=== PATIENT | female | born 1995 | race African-American/Black ===

== ENCOUNTER 2018-01-05 03:11 | Inpatient (IN) | payer MEDICAID, OTHER ==
[2018-01-05] VITALS (10 sets, daily range): BP systolic 119–133; BP diastolic 64–84; PULSE 79–95; RESP 14–23; TEMP 98.8–99.3; O2SAT 100
[~2018-01-05] VITALS: Ht 154.9 cm; Wt 67.9 kg
[2018-01-05] MEDS ORDERED: KETOROLAC TROMETHAMINE 60 MG/2 ML (IM) VIAL IM ONE (04:17)
[2018-01-05] MEDS ORDERED: MAGNESIUM HYDROXIDE SUSP 30 ML CUP PO PRN (08:15)
[2018-01-05] MEDS ORDERED: MISCELLANEOUS NURSING INFORMATION XX SCH (08:15)
[2018-01-05] MEDS ORDERED: METOCLOPRAMIDE HCL 10 MG/2 ML VIAL IV PUSH PRN (08:15)
[2018-01-05] MEDS ORDERED: RESP: ALBUTEROL 2.5 MG/IPRATROPIUM 0.5 MG NEB (PRN) INH (08:15)
[2018-01-05] MEDS ORDERED: CHLORHEXIDINE GLUCONATE 2 % 1 PACK (2 CLOTHS) TOP PRN (08:15)
[2018-01-05] MEDS ORDERED: SODIUM CHLORIDE 0.9% FLUSH 10 ML FLUSH IV FLUSH PRN (08:15)
[2018-01-05] MEDS ORDERED: ACETAMINOPHEN 325 MG TAB PO PRN (08:15)
--- NOTE | 2018-01-05 08:41 | HHI.HP ---
HPI Service Critical Care Medicine Primary Care Physician No Primary Care Physician Admission Diagnosis Diagnosis: Chief Complaint: Nausea, vomiting, abdominal pain Travel History International Travel<30 Days: No Contact w/Intl Traveler <30 Da: No Traveled to Known Affected Are: No Sepsis Criteria SIRS Criteria (2 or more): Temp > 100.9 or < 96.8, Heart rate over 90 Sepsis Criteria (SIRS+source): Infect source susp/known History of Present Illness 22-year-old female with no major medical problems with a history of 1 month ago presented to the ER at [facility] now with nausea vomiting and abdominal pain going on for 2 days and not feeling well. Patient is to be young daughters aged 2 and 4 were sick with respiratory symptoms and fevers over the last 1 week. Patient also noted having some diarrhea couple of times over the last 2 days. She denies any melena or rectal bleeding. Denies any chest pain or dizziness or palpitations or lightheadedness. Denies any dysuria or hematuria or urinary frequency. She did follow-up with her OB physician in November following her and had shay removed then and seemed to be doing well following the of her baby. Patient was reportedly febrile and tachycardic in the ER at [facility]. She underwent labs including a CBC and CMP which were unremarkable with a normal lipase as well as CT abdomen pelvis showed fluid-filled bowel loops however no acute pathology. CTA chest was negative for PE and showed a pulmonary nodule however no infiltrates or effusions. Patient received 5 L of IV fluids prior to transport to [facility] ICU. I evaluated the patient immediately following her arrival. She appeared comfortable in bed in no acute distress. Denied any nausea vomiting currently. She was feeling hungry and wanted to eat. History was obtained by discussion with patient as well as reviewing records. Patient was reportedly on room air and has not required any oxygen since her arrival to the ER yesterday. There was some transient hypotension in the ER adult on a however this appears to have resolved with fluids. Her lactic acid at [facility] was normal. Review of Systems Constitutional: COMPLAINS OF: Fever, Chills, DENIES: Diaphoretic episodes, Fatigue, Weight gain, Weight loss, Dizziness, Change in appetite, Night Sweats Endocrine: DENIES: Abnorml menstrual pattern, Heat/cold intolerance, Polydipsia , Polyuria, Polyphagia Eyes: DENIES: Blurred vision, Diplopia, Eye inflammation, Eye pain, Vision loss , Photosensitivity, Double Vision Ears, nose, mouth, throat: DENIES: Tinnitus, Hearing loss, Vertigo, Nasal discharge, Oral lesions, Throat pain, Hoarseness, Ear Pain, Running Nose, Epistaxis, Sinus Pain, Toothache, Odynophagia Respiratory: DENIES: Apneas, Cough, Snoring, Wheezing, Hemoptysis, Sputum production, Shortness of breath Cardiovascular: DENIES: Chest pain, Palpitations, Syncope, Dyspnea on Exertion , PND, Lower Extremity Edema, Orthopnea, Claudication Gastrointestinal: COMPLAINS OF: Abdominal pain, Diarrhea, Nausea, Vomiting, DENIES: Black stools, Bloody stools, Constipation, Difficulty Swallowing, Anorexia Genitourinary: DENIES: Abnormal vaginal bleeding, Dysmenorrhea, Dyspareunia, Sexual dysfunction, Urinary frequency, Urinary incontinence, Urgency, Hematuria , Dysuria, Nocturia, Vaginal discharge Musculoskeletal: DENIES: Joint pain, Muscle aches, Stiffness, Joint Swelling, Back pain, Neck pain Integumentary: DENIES: Abnormal pigmentation, Pruritus, Rash, Nail changes, Breast masses, Breast skin changes, Nipple discharge Hematologic/lymphatic: DENIES: Bruising, Lymphadenopathy Immunologic/allergic: DENIES: Eczema, Urticaria Neurologic: DENIES: Abnormal gait, Headache, Localized weakness, Paresthesias, Seizures, Speech Problems, Tremor, Poor Balance Psychiatric: DENIES: Anxiety, Confusion, Mood changes, Depression, Hallucinations, Agitation, Suicidal Ideation, Homicidal Ideation, Delusions Past Family Social History Allergies: Coded Allergies: No Known Allergies (Verified Allergy, Severe, 09/23/07) Past Medical History No major medical problems before. Past Surgical History 1 month ago. Reported Medications Patient denies taking any medications at home. Active Ordered Medications Received Zosyn and vancomycin IV in the ER at [facility] Family History Mother with history of diabetes mellitus. Social History Denies any history of substance abuse. Physical Exam Physical Exam Heart rate 90, blood pressure 130s by the 70s O2 sat 99% on room air Laboratory Reviewed from [facility] ER: CBC, CMP, lipase within normal limits. D-dimer 0.64, lactic acid normal, Beta-HCG negative Imaging CTA chest: Negative for PE. Pulmonary nodule. No infiltrates or effusions per radiology report from [facility] ER CT abdomen pelvis: Fluid-filled bowel loops, no acute pathology per radiology report from [facility] ER Septic Shock Reassessment Septic shock perfusion: reassessment completed Caprini VTE Risk Assessment Caprini VTE Risk Assessment: No/Low Risk (score <= 1) Caprini Risk Assessment Model Point Value = 1 Point Value = 2 Point Value = 3 Point Value = 5 Age 41-60 Minor surgery BMI > 25 kg/m2 Swollen legs Varicose veins or History of unexplained or recurrent spontaneous Oral contraceptives or hormone replacement Sepsis (< 1 month) Serious lung disease, including pneumonia (< 1 month) Abnormal pulmonary function Acute myocardial infarction Congestive heart failure (< 1 month) History of inflammatory bowel disease Medical patient at bed rest Age 61-74 Arthroscopic surgery Major open surgery (> 45 min) Laparoscopic surgery (> 45 min) Malignancy Confined to bed (> 72 hours) Immobilizing plaster cast Central venous access Age >= 75 History of VTE Family history of VTE Factor V Leiden Prothrombin [id number] Lupus anticoagulant Anticardiolipin antibodies Elevated serum homocysteine Heparin-induced thrombocytopenia Other congenital or acquired thrombophilia Stroke (< 1 month) Elective arthroplasty Hip, pelvis, or leg fracture Acute spinal cord injury (< 1 month) Prophylaxis Regimen Total Risk Factor Score Risk Level Prophylaxis Regimen 0-1 Low Early ambulation 2 Moderate Order ONE of the following: *Sequential Compression Device (SCD) *Heparin 5000 units SQ BID 3-4 Higher Order ONE of the following medications: *Heparin 5000 units SQ TID *Enoxaparin/Lovenox 40 mg SQ daily (WT < 150 kg, CrCl > 30 mL/min) *Enoxaparin/Lovenox 30 mg SQ daily (WT < 150 kg, CrCl > 10-29 mL/min) *Enoxaparin/Lovenox 30 mg SQ BID (WT < 150 kg, CrCl > 30 mL/min) AND/OR *Sequential Compression Device (SCD) 5 or more Highest Order ONE of the following medications: *Heparin 5000 units SQ TID (Preferred with Epidurals) *Enoxaparin/Lovenox 40 mg SQ daily (WT < 150 kg, CrCl > 30 mL/min) *Enoxaparin/Lovenox 30 mg SQ daily (WT < 150 kg, CrCl > 10-29 mL/min) *Enoxaparin/Lovenox 30 mg SQ BID (WT < 150 kg, CrCl > 30 mL/min) AND *Sequential Compression Device (SCD) Assessment and Plan Assessment and Plan 22-year-old female with: Nausea vomiting abdominal pain Fever Possible sepsis secondary to suspected viral illness, probable gastroenteritis. Plan: Patient accepted for admission to ICU. Received 5 L IV fluids prior to arrival and appears to be well resuscitated. Continue maintenance IV fluids Received IV antibiotics in the ER including Zosyn and vancomycin. Suspect possible viral illness with possible gastroenteritis as 2 of her children also had similar symptoms last week. We will initiate Levaquin 500 mg IV now and switch to by mouth tomorrow. Tolerating oral intake. Patient denies breast-feeding currently. Check nasal washings for influenza A and B. Advance by mouth diet as tolerated Follow intake output, monitor and replete electrolytes, follow BUN/creatinine SCDs for DVT prophylaxis. We'll ambulate as tolerated. Will reevaluate later today to transfer out of ICU. Patient will be transferred to hospitalist service for further medical management. Triston Stephen MD Jan 05, 2018 08:41
[2018-01-05] MEDS: LEVOFLOXACIN 500 MG PREMIX INJ 100 ML IV SCH (10:22)
[2018-01-05] MEDS: D5-1/2 NS + KCL 20 MEQ INJ 1,000 ML IV SCH ×2 (10:22→17:35)
[2018-01-05] MEDS: SODIUM CHLORIDE 0.9% FLUSH 10 ML FLUSH IV FLUSH SCH ×2 (10:23→21:00)
[2018-01-05] MEDS: PANTOPRAZOLE SOD 40 MG DELAYED RELEASE TAB PO SCH (10:24)
[2018-01-05] MEDS: ONDANSETRON HCL 4 MG/2 ML VIAL IV PUSH PRN ×2 (11:47→22:58)
[2018-01-06] VITALS: BP 124/67; PULSE 90; RESP 18; TEMP 98.7; O2SAT 100
[2018-01-06] MEDS: D5-1/2 NS + KCL 20 MEQ INJ 1,000 ML IV SCH ×2 (00:08→02:37)
[2018-01-06 04:00] VITALS: BP 119/71; PULSE 80; RESP 16; TEMP 98.5; O2SAT 100
[2018-01-06] MEDS ORDERED: CHLORHEXIDINE GLUCONATE 2 % 1 PACK (2 CLOTHS) TOP SCH (04:00)
[2018-01-06 05:24] LABS: AUTOMATED NEUTROPHIL # 2.7 TH/MM3 (1.8-7.7); BASOPHIL % 0.5 % (0.0-2.0); EOSINOPHIL % 0.8 % (0.0-4.0); HEMATOCRIT 24.6 % (35.0-46.0); HEMOGLOBIN 7.9 GM/DL (11.6-15.3); LYMPH % 31.3 % (9.0-44.0); LYMPHOCYTE # 1.6 TH/MM3 (1.0-4.8); MEAN CELL VOLUME 77.4 FL (80.0-100.0); MEAN CORPUSCULAR HEMOGLOBIN 24.8 PG (27.0-34.0); MEAN CORPUSCULAR HGB CONC 32.1 % (32.0-36.0); MEAN PLATELET VOLUME 7.7 FL (7.0-11.0); MONO % 14.4 % (0.0-8.0); MONOCYTE # 0.7 TH/MM3 (0-0.9); PLATELET COUNT 211 TH/MM3 (150-450); RED BLOOD COUNT 3.18 MIL/MM3 (4.00-5.30); RED CELL DISTRIBUTION WIDTH 20.4 % (11.6-17.2); WHITE BLOOD COUNT 5.1 TH/MM3 (4.0-11.0)
[2018-01-06 05:45] LABS: ALBUMIN 2.8 GM/DL (3.4-5.0); AST (GOT) 16 U/L (15-37); BICARBONATE 26.4 MEQ/L (21.0-32.0); BLOOD UREA NITROGEN 3 MG/DL (7-18); CALCIUM 8.3 MG/DL (8.5-10.1); CHLORIDE 109 MEQ/L (98-107); CREATININE 0.67 MG/DL (0.50-1.00); GLOMERULAR FILTRATION RATE 134 ML/MIN (>89); GLUCOSE,RANDOM 99 MG/DL (74-106); SODIUM (NA) 143 MEQ/L (136-145)
[2018-01-06 05:46] LABS: ALT (GPT) 11 U/L (10-53)
[2018-01-06 05:48] LABS: ALKALINE PHOSPHATASE 116 U/L (45-117); TOTAL BILIRUBIN ADULT 0.2 MG/DL (0.2-1.0); TOTAL PROTEIN 6.5 GM/DL (6.4-8.2)
[2018-01-06 08:00] VITALS: BP 135/64; PULSE 84; RESP 20; TEMP 98.4; O2SAT 100
[2018-01-06] MEDS: SODIUM CHLORIDE 0.9% FLUSH 10 ML FLUSH IV FLUSH SCH (09:00)
[2018-01-06] MEDS ORDERED: POTASSIUM CHLORIDE 10 MEQ CONTROLLED RELEASE TAB PO ONE (09:30)
[2018-01-06] MEDS: PANTOPRAZOLE SOD 40 MG DELAYED RELEASE TAB PO SCH (09:44)
[2018-01-06] MEDS: LEVOFLOXACIN 500 MG PREMIX INJ 100 ML IV SCH (09:45)
[2018-01-06 11:23] LABS: % SATURATION IRON PROFILE 6.4 % (20-50); IRON (FE) 22 MCG/DL (50-170); MAGNESIUM 1.8 MG/DL (1.5-2.5); TOTAL IRON BINDING CAPACITY 343 MCG/DL (250-450)
[2018-01-06 11:25] LABS: FERRITIN 9 NG/ML (8-252)
[2018-01-06 12:00] VITALS: BP 133/84; PULSE 68; RESP 20; TEMP 97.7; O2SAT 100
--- NOTE | 2018-01-06 14:33 | HHI.PR ---
Subjective Remarks F/u GI sxs. Feeling better was nauseated and vomited lunch because fish was served. At this time she does not have any complaints. No UTI symptoms. She wants to go home discussed with RN Objective Vitals Vital Signs Date Time Temp Pulse Resp B/P (MAP) Pulse Ox O2 Delivery O2 Flow Rate FiO2 01/06/18 12:00 97.7 68 20 133/84 (100) 100 01/06/18 08:00 98.4 84 20 135/64 (87) 100 01/06/18 07:33 Room Air 01/06/18 04:00 98.5 80 16 119/71 (87) 100 01/06/18 04:00 Room Air 01/06/18 00:00 98.7 90 18 124/67 (86) 100 01/06/18 00:00 Room Air 01/05/18 22:44 Room Air 01/05/18 20:00 79 01/05/18 20:00 98.8 79 14 122/72 (89) 100 01/05/18 18:00 81 01/05/18 16:00 85 23 126/84 (98) 100 01/05/18 16:00 83 I/O 01/05/18 01/05/18 01/05/18 01/06/18 01/06/18 01/06/18 07:00 15:00 23:00 07:00 15:00 23:00 Intake Total 100 ml 300 ml 2077 ml Output Total 300 ml Balance 100 ml 0 ml 2077 ml Intake Oral 300 ml 890 ml IV Total 100 ml 1187 ml Emesis 300 ml # Voids 1 3 # Bowel Movements 1 1 Result Diagram: 01/06/18 0500 01/06/18 0500 Objective Remarks GENERAL: Well-developed and well-nourished in no distress SKIN: Warm and dry. HEAD: Atraumatic. Normocephalic. EYES: Pupils equal and round. No scleral icterus. No injection or drainage. ENT: No nasal bleeding or discharge. Mucous membranes pink and moist. NECK: Trachea midline. No JVD. CARDIOVASCULAR: Regular rate and rhythm. RESPIRATORY: No accessory muscle use. Clear to auscultation. Breath sounds equal bilaterally. GASTROINTESTINAL: Abdomen soft, non-tender, nondistended. Delete MUSCULOSKELETAL: Extremities without clubbing, cyanosis, or edema. No obvious deformities. NEUROLOGICAL: Awake and alert. No obvious cranial nerve deficits. Motor grossly within normal limits. Five out of 5 muscle strength in the arms and legs. Normal speech. PSYCHIATRIC: Appropriate mood and affect; insight and judgment normal. Procedures Non- A/P Problem List: (1) Gastroenteritis ICD Code: K52.9 - Noninfective gastroenteritis and colitis, unspecified Assessment and Plan 22-year-old female with: Nausea vomiting abdominal pain from gastroenteritis with possible sepsis. She is clinically improving after IV hydration. If she tolerates dinner will be discharged home Abnormal urinalysis. Patient no UTI symptoms. Continue Levaquin for now follow -up urine culture. BV general culture positive with Gardnerella and multiple BM. Start Flagyl. Pulmonary nodule will need outpatient follow-up with CT. acute on chronic anemia. History of IVDA. Patient to continue iron. Repeat hemoglobin today. Drop in hemoglobin likely secondary dilution. No gross bleeding. SCDs for DVT prophylaxis. We'll ambulate as tolerated. Discharge Planning Discharge patient to home Condition on discharge: Improved Regular Diet as tolerated Ad Sylvie activity no driving Rx written: Rachele Follow-up with primary care physician Johann Ford MD Jan 06, 2018 14:33
[2018-01-06] MEDS: ONDANSETRON HCL 4 MG/2 ML VIAL IV PUSH PRN (15:00)
[2018-01-06 16:00] VITALS: BP 122/73; PULSE 63; RESP 20; TEMP 98.4; O2SAT 100
[2018-01-06] MEDS ORDERED: metroNIDAZOLE 500 MG TAB PO ONE (17:00)
[2018-01-06] MEDS ORDERED: METR-1 PO (17:05)
--- NOTE | 2018-01-06 17:05 | HHI.DCPOC ---
Discharge Care Plan Diagnosis: (1) Gastroenteritis Your Health Problems Are: Difficulty with ADL Exercise Tolerance Goals to Promote Your Health * To prevent worsening of your condition and complications * To maintain your health at the optimal level Directions to Meet Your Goals Take your medications as prescribed Follow your dietary instruction Follow activity as directed Keep your appointments as scheduled Take your immunizations and boosters as scheduled If your symptoms worsen call your PCP, if no PCP go to Urgent Care Center or Emergency Room Smoking is Dangerous to Your Health. Avoid second hand smoke Call the 24-hour hour crisis hotline for domestic abuse at Johann Ford MD Jan 06, 2018 17:05
[2018-01-06 18:15] LABS: HEMATOCRIT 27.2 % (35.0-46.0); HEMOGLOBIN 8.6 GM/DL (11.6-15.3)
[2018-01-06] MEDS ORDERED: metroNIDAZOLE 500 MG TAB PO SCH (21:00)
== END 2018-01-06 19:35 | disposition home or self-care (01) | DRG 392 ==
LOC: NEDDLT 03:11 → HIMW 07:54 → N04A 21:55
PROVIDERS: ADMIT Internal Medicine; ATTEND Internal Medicine
DX: K52.9 Noninfective gastroenteritis and colitis, unspecified (principal); R00.0 Tachycardia, unspecified
CPT/HCPCS: 71275; 74176; 80048; 80053; 80307; 81001; 82728; 82805; 83540; 83550; 83605; 83690; 83735; 84702; 85014; 85018; 85025; 85379; 85652; 87040; 87086; 87491; 87511; 87591; 87641; 87798; 87804; 96374; 96375; C9113; J0500; J1885; J1956; J2405; J2543; J2765; J3370; J3480; J7030; J7050; Q9967